=== PATIENT | male | born 1960 | race Caucasian/White ===

== ENCOUNTER 2018-05-02 12:37 | Observation (INO) ==
[2018-05-02 13:43] LABS: Baso # (Auto) 0.1 th/mm3 (0.0-0.2); Baso % (Auto) 0.6 % (0.0-2.0); Eos % (Auto) 0.1 % (0.0-4.0); Hematocrit 39.7 % (39.0-51.0); Hemoglobin 13.8 gm/dL (13.0-17.0); Lymph # (Auto) 1.2 th/mm3 (1.0-4.8); Lymph % (Auto) 13.3 % (9.0-44.0); Mean Corpuscular HGB Conc 34.8 % (32.0-36.0); Mean Corpuscular Volume 88.9 fL (80.0-100.0); Mean Platelet Volume 7.3 fL (7.0-11.0); Mono # (Auto) 0.3 th/mm3 (0.0-0.9); Mono % (Auto) 3.9 % (0.0-8.0); Neut # (Auto) 7.3 th/mm3 (1.8-7.7); Neut % (Auto) 82.1 % (16.0-70.0); Platelet Count 291 th/mm3 (150-450); Red Blood Count 4.47 mil/mm3 (4.50-5.90); Red Cell Distribution Width 13.3 % (11.6-17.2); White Blood Count 8.9 th/mm3 (4.0-11.0)
[2018-05-02] MEDS ORDERED: Sodium Chlor 0.9% Inj 500 ML IV.SIG SCH (14:00)
[2018-05-02 14:02] LABS: Anion Gap 12 meq/L (5-15); Blood Urea Nitrogen 13 mg/dL (7-18); Calcium 8.8 mg/dL (8.5-10.1); Carbon Dioxide 24.1 meq/L (21.0-32.0); Chloride 106 meq/L (98-107); Glomerular Filtration Rate 60 mL/min (>89); Glucose,Random 155 mg/dL (74-106); Potassium 3.6 meq/L (3.5-5.1); Sodium 142 meq/L (136-145)
--- NOTE | 2018-05-02 14:06 | XR ---
EXAM DATE: 05/02/2018 1:55 PM EST AGE/SEX: 57 years / Male INDICATIONS: . Short of breath. CLINICAL DATA: This is the patient's initial encounter. Patient reports that signs and symptoms have been present for 1 day and indicates a pain score of 0/10. MEDICAL/SURGICAL HISTORY: None. None. COMPARISON: No prior exams available for comparison. FINDINGS: PA and lateral views of the chest demonstrate a normal-sized cardiac silhouette. There is no effusion , consolidation, or pneumothorax. The bones and soft tissues demonstrate no acute abnormality. CONCLUSION: No acute cardiopulmonary abnormality is identified. Electronically signed by: Yadiel Ramires MD 05/02/2018 2:05 PM EST
--- NOTE | 2018-05-02 14:06 | ED ---
HPI General Chief Complaint: Syncope Stated Complaint: neuro symptoms Time Seen by Provider: 05/02/18 12:58 Source: patient Mode of arrival: ambulatory Limitations: no limitations History of Present Illness HPI narrative: Patient is a 57-year-old male, past medical history significant for seizures and hyperlipidemia, who presents with complaint of near syncope. He states that over the last 2 days he has had several episodes where he felt like he was going to pass out associated with nausea but no vomiting. He thinks they occur when he gets stressed out but he is not sure. Today prior to arrival he had an episode that was associated with some chest pain and shortness of breath. He does not know if it would occur with exertion or not. No immobilization or leg swelling. No fever, chills. He has had some nasal congestion with a nonproductive cough. complaint: Reports felt faint and almost passed out Onset (ago): hour(s) -: minutes(s) Prodromal symptoms: Reports lightheaded Witnessed: no Context: Reports at rest Injuries sustained associated with event: Reports none Current symptoms: Reports none and back to baseline Treatments prior to arrival: Reports none Related Data Home Medications Medication Instructions Recorded Confirmed levetiracetam [Keppra] 1,500 mg PO BID 05/02/18 05/02/18 Allergies Allergy/AdvReac Type Severity Reaction Status Date / Time carbamazepine [From Tegretol] Allergy Anaphylaxis Verified 05/02/18 12:43 Review of Systems ROS: all other systems reviewed are negative [facility] Medical History Medical History Hyperlipemia (Acute) Seizure (Acute) Social History Social History Substance History: No History of Abuse Second Hand Smoke Exposure: No Smoking Status: Former smoker Tobacco Type: Cigarettes How Often Do You Have a Drink Containing Alcohol: 4 or more times a week Recent Travel in [facility] within the Last 8 Weeks: No Recent Out of Country Travel within the Last 8 Weeks: No Immunization History Tetanus Immunization: Unsure Exam Narrative Exam Narrative: GENERAL: Well-appearing male in no acute distress SKIN: Focused skin assessment warm/dry. No rashes. HEAD: Atraumatic. Normocephalic. EYES: Pupils equal and round. No scleral icterus. No injection or drainage. ENT: No nasal bleeding or discharge. Mucous membranes pink and moist. NECK: Trachea midline. No JVD. CARDIOVASCULAR: Regular rate and rhythm. No murmur appreciated. Intact and equal peripheral pulses. RESPIRATORY: No accessory muscle use. Clear to auscultation. Breath sounds equal bilaterally. GASTROINTESTINAL: Abdomen soft, non-tender, nondistended. Hepatic and splenic margins not palpable. No pulsatile mass. MUSCULOSKELETAL: No obvious deformities. No clubbing. No cyanosis. No edema. NEUROLOGICAL: Awake and alert. No obvious cranial nerve deficits. Motor grossly within normal limits. Normal sensation. Normal speech. PSYCHIATRIC: Appropriate mood and affect; insight and judgment normal. Course Initial Documented Vital Signs Temperature 97.9 F 05/02/18 12:41 Pulse Rate 63 05/02/18 12:41 Respiratory Rate 20 05/02/18 12:41 Blood Pressure 184/95 H 05/02/18 12:41 Pulse Oximetry 99 05/02/18 12:41 Last Documented Vital Signs Temperature 97.9 F 05/02/18 12:41 Pulse Rate 63 05/02/18 12:41 Respiratory Rate 20 05/02/18 12:41 Blood Pressure 184/95 H 05/02/18 12:41 Pulse Oximetry 99 05/02/18 12:41 Medical Decision Making MDM Narrative Medical decision making narrative: Patient is a 57-year-old male who presents with complaint of several episodes of near syncope he thinks is associated with stress. Today he also had associated chest pain with dyspnea. He has been chest pain-free while in the emergency department. EKG does not show any ST or T wave changes. Chest x-ray is unremarkable. Initial troponin is negative. He has been placed in the chest pain center for serial troponins and EKGs. Medical Screen Exam Complete: Yes Emergency Medical Condition: Yes Differential Diagnosis Differential Diagnosis: Differential diagnosis includes but is not limited to dysrhythmia, electrolyte abnormality, anemia, acute coronary syndrome. Medical Records Medical records reviewed: Yes I reviewed the patient's medical records. Lab Data Lab results reviewed: Yes I reviewed the patient's lab results. Result diagrams: 05/02/18 13:23 05/02/18 13:23 Lab Results 05/02/18 05/02/18 Range/Units 13:23 13:23 WBC 8.9 (4.0-11.0) th/mm3 RBC 4.47 L (4.50-5.90) mil/mm3 Hgb 13.8 (13.0-17.0) gm/dL Hct 39.7 (39.0-51.0) % MCV 88.9 (80.0-100.0) fL MCH 31.0 (27.0-34.0) pg MCHC 34.8 (32.0-36.0) % RDW 13.3 (11.6-17.2) % Plt Count 291 (150-450) th/mm3 MPV 7.3 (7.0-11.0) fL Neut % (Auto) 82.1 H (16.0-70.0) % Lymph % (Auto) 13.3 (9.0-44.0) % Runnels % (Auto) 3.9 (0.0-8.0) % Eos % (Auto) 0.1 (0.0-4.0) % Baso % (Auto) 0.6 (0.0-2.0) % Neut # (Auto) 7.3 (1.8-7.7) th/mm3 Lymph # (Auto) 1.2 (1.0-4.8) th/mm3 Runnels # (Auto) 0.3 (0.0-0.9) th/mm3 Eos # (Auto) 0.0 (0.0-0.4) th/mm3 Baso # (Auto) 0.1 (0.0-0.2) th/mm3 WBC Differential . Differential Comment Auto diff final Sodium 142 (136-145) meq/L Potassium 3.6 (3.5-5.1) meq/L Chloride 106 (98-107) meq/L Carbon Dioxide 24.1 (21.0-32.0) meq/L Anion Gap 12 (5-15) meq/L BUN 13 (7-18) mg/dL Creatinine 1.24 (0.60-1.30) mg/dL Estimated GFR 60 L (>89) mL/min Random Glucose 155 H (74-106) mg/dL Calcium 8.8 (8.5-10.1) mg/dL Troponin I Less than 0.02 L (0.02-0.05) ng/mL Imaging Data Attestation: I personally reviewed and interpreted this imaging study as follows : My impression: No acute cardiopulmonary process Radiologist's impression: Chest X-Ray 05/02/18 13:10 CONCLUSION: No acute cardiopulmonary abnormality is identified. ECG Data EKG Prior to Arrival: No Attestation: I personally reviewed and interpreted this ECG as follows: (Sinus rhythm at 60 bpm. There are no ST or T wave changes.) Discharge Plan Discharge Disposition Patient Disposition: ED Admit(ED Internal Use Only) Discharge Condition Condition: Stable Discharge Order Discharge Orders: ED Use Only Admit Order (Routine); Ordered 05/02/18 Ordered By: Ivana Monsivais Discharge Details Diagnosis: Chest pain, rule out acute myocardial infarction Physicians Team ED Provider: Ivana Monsivais Primary Care Provider: [facility],Physician 's Rxs /Orders / Referrals /Forms Prescriptions: No Action levetiracetam [Keppra] 1,000 mg Tablet 1,500 mg PO BID RF: 0 Status ED Status: With Doctor
--- NOTE | 2018-05-02 15:22 | P.HPCA ---
History of Present Illness Primary Care Physician: [facility]ician [place] Chief Complaint: Chest pain History of Present Illness: This is a 57-year-old male with history of seizure disorder and hyperlipidemia presents to ED at the suggestion of the [place] after being evaluated there with the primary complaint of chest discomfort. States persons he noticed one more so being lightheaded and nauseous last evening. Then around 10:00 last evening he began having a left-sided chest discomfort he states is localized. There is moderate. Mildly short of breath. He is Magnus nauseous. That is since resolved. Denies diaphoresis. States symptoms lasted about 2 hours. Found nothing really to worsen or improve the symptoms when they were present. Cannot recall any recent cardiac testing. States his last seizure was a few months ago. States they usually brought on by stress or fatigue. History of seizure disorder and hyperlipidemia. Voices compliance with medications for both. Denies hypertension and known CAD. His mother had a stroke at age 75. Patient quit smoking cigarettes about 30 years ago. - Diagnosis (1) Chest pain (2) Hyperlipidemia (3) History of seizure disorder Review of Systems General: Patient denies fevers, chills, and recent travel. HEENT: Patient denies headache, sore throat, difficulty swallowing. Cardiovascular: Has the chest discomfort as mentioned above. Denies sensation of heart beating rapidly or irregularly. No syncope. Denies diaphoresis. Respiratory: Mildly short of breath. Denies inspirational chest discomfort. Denies coughing wheezing or hemoptysis. GI: He was nauseous last evening. Patient denies vomiting, diarrhea, abdominal pain, bloody stools. Musculoskeletal: Patient denies joint pain or edema. Denies calf pain or edema. Neurovascular: Patient denies numbness, tingling, weakness in extremities. Denies headache. Endocrine: Denies polyuria and polydipsia. Hematologic: Denies easy bruising. Skin: Denies rash or itching. PMFSH - History History Provided By: Patient - Medical History Medical History: Medical History (Last Reviewed 05/02/18 @ 14:05 by Ivana Monsivais MD) Hyperlipemia Seizure - Tobacco History Second Hand Smoke Exposure: No Tobacco Use In Past 30 Days: No Smoking Status: Former smoker Tobacco Type: Cigarettes - Alcohol History How Often Do You Have a Drink Containing Alcohol: 4 or more times a week - Substance Use History Substance History: No History of Abuse - Travel History Recent Travel in the [place] Within the Last 8 Weeks: No Recent Travel Out of the Country Within the Last 8 Weeks: No - Immunization History Tetanus Immunization: Unsure Medications and Allergies Active Medications: Active Medications Sodium Chloride (Ns Flush) 2 ml IV.FLUSH PRN PRN PRN Reason: FLUSH AFTER USING IV ACCESS Allergies Allergy/AdvReac Type Severity Reaction Status Date / Time carbamazepine [From Tegretol] Allergy Anaphylaxis Verified 05/02/18 12:43 Home Medications Medication Instructions Recorded Confirmed Type levetiracetam [Keppra] 1,500 mg PO BID 05/02/18 05/02/18 History Exam Vital signs: Vital Signs 05/02/18 12:41 05/02/18 14:49 Temperature 97.9 F Pulse Rate 63 75 Respiratory Rate 20 18 Blood Pressure 184/95 H 108/70 Pulse Oximetry 99 Intake & Output 05/01/18 05/02/18 05/02/18 18:59 06:59 18:59 Weight 79.379 kg Narrative: GENERAL: This is a well-nourished, well-developed patient, in no apparent distress. Patient speaks in clear complete sentences. Patient is pleasant. HEENT: Head is atraumatic and normocephalic. Neck is supple without lymphadenopathy and trachea is midline. No JVD or carotid bruits. CARDIOVASCULAR: Regular rate and rhythm without murmurs, gallops, or rubs. RESPIRATORY: Clear to auscultation. Breath sounds equal bilaterally. No wheezes , rales, or rhonchi. Chest wall is nontender. No use of accessory muscles. GASTROINTESTINAL: Abdomen is nontender, nondistended. Abdomen soft. No obvious pulsatile mass or bruit. No CVA tenderness. Strong femoral pulses bilaterally. Normal bowel sounds in all quadrants. MUSCULOSKELETAL: Patient is moving upper and lower extremities freely. No calf tenderness or edema, no Homans sign. Strong pulses in upper and lower extremities. NEUROLOGICAL: Patient is alert and oriented. Cranial nerves 2-12 are grossly intact. No focal deficits and speech is clear. SKIN: No rash and turgor is normal. Results 05/02/18 13:23 05/02/18 13:23 Cardiac Enzymes 05/02/18 Range/Units 13:23 Troponin I Less than 0.02 L (0.02-0.05) ng/mL CBC 05/02/18 Range/Units 13:23 WBC 8.9 (4.0-11.0) th/mm3 RBC 4.47 L (4.50-5.90) mil/mm3 Hgb 13.8 (13.0-17.0) gm/dL Hct 39.7 (39.0-51.0) % Plt Count 291 (150-450) th/mm3 Neut # (Auto) 7.3 (1.8-7.7) th/mm3 Lymph # (Auto) 1.2 (1.0-4.8) th/mm3 Alfalfa # (Auto) 0.3 (0.0-0.9) th/mm3 Eos # (Auto) 0.0 (0.0-0.4) th/mm3 Baso # (Auto) 0.1 (0.0-0.2) th/mm3 Comprehensive Metabolic Panel 05/02/18 Range/Units 13:23 Sodium 142 (136-145) meq/L Potassium 3.6 (3.5-5.1) meq/L Chloride 106 (98-107) meq/L Carbon Dioxide 24.1 (21.0-32.0) meq/L BUN 13 (7-18) mg/dL Creatinine 1.24 (0.60-1.30) mg/dL Calcium 8.8 (8.5-10.1) mg/dL Intake and Output 05/02/18 05/02/18 05/02/18 06:59 14:59 22:59 Other: Weight 79.379 kg Patient Weight 05/03/18 06:59 Weight 79.379 kg - Imaging and Cardiology Imaging: Impressions Chest X-Ray 05/02/18 13:10 CONCLUSION: No acute cardiopulmonary abnormality is identified. EKG interpretations - EKG EKG shows: sinus rhythm (Initial EKG is sinus rhythm, incomplete right bundle branch block. No significant ST segment depressions or elevations.) Caprini VTE Risk Assessment Caprini VTE Risk Assessment: No/Low Risk (score <= 1) Caprini Risk Assessment Model: Point Value = 1 Point Value = 2 Point Value = 3 Point Value = 5 Age 41-60 Minor surgery BMI > 25 kg/m2 Swollen legs Varicose veins or History of unexplained or recurrent spontaneous Oral contraceptives or hormone replacement Sepsis (< 1 month) Serious lung disease, including pneumonia (< 1 month) Abnormal pulmonary function Acute myocardial infarction Congestive heart failure (< 1 month) History of inflammatory bowel disease Medical patient at bed rest Age 61-74 Arthroscopic surgery Major open surgery (> 45 min) Laparoscopic surgery (> 45 min) Malignancy Confined to bed (> 72 hours) Immobilizing plaster cast Central venous access Age >= 75 History of VTE Family history of VTE Factor V Leiden Prothrombin [id number] Lupus anticoagulant Anticardiolipin antibodies Elevated serum homocysteine Heparin-induced thrombocytopenia Other congenital or acquired thrombophilia Stroke (< 1 month) Elective arthroplasty Hip, pelvis, or leg fracture Acute spinal cord injury (< 1 month) Prophylaxis Regimen: Total Risk Factor Score Risk Level Prophylaxis Regimen 0-1 Low Early ambulation 2 Moderate Order ONE of the following: *Sequential Compression Device (SCD) *Heparin 5000 units SQ BID 3-4 Higher Order ONE of the following medications: *Heparin 5000 units SQ TID *Enoxaparin/Lovenox 40 mg SQ daily (WT < 150 kg, CrCl > 30 mL/min) *Enoxaparin/Lovenox 30 mg SQ daily (WT < 150 kg, CrCl > 10-29 mL/min) *Enoxaparin/Lovenox 30 mg SQ BID (WT < 150 kg, CrCl > 30 mL/min) AND/OR *Sequential Compression Device (SCD) 5 or more Highest Order ONE of the following medications: *Heparin 5000 units SQ TID (Preferred with Epidurals) *Enoxaparin/Lovenox 40 mg SQ daily (WT < 150 kg, CrCl > 30 mL/min) *Enoxaparin/Lovenox 30 mg SQ daily (WT < 150 kg, CrCl > 10-29 mL/min) *Enoxaparin/Lovenox 30 mg SQ BID (WT < 150 kg, CrCl > 30 mL/min) AND *Sequential Compression Device (SCD) Assessment and Plan - Assessment (1) Chest pain Code(s): R07.9 - Chest pain, unspecified Status: Acute (2) Hyperlipidemia Code(s): E78.5 - Hyperlipidemia, unspecified Status: Acute (3) History of seizure disorder Code(s): Z86.69 - Personal history of other diseases of the nervous system and sense organs Status: Acute - Plan * Chest pain: Patient has been seen by Dr. David Chaves of cardiology and chest pain center. First troponin is normal. Dr. Chaves has requested stress test. He will have a Hansel protocol ETT at this time and would be discharged home if stress test is nonischemic with instructions to follow-up with PCP. Return to ED for interval issues. * Hyperlipidemia: Resume medication. * Seizure disorder: Resume medication. Patient is stable at this time. He is agreeable to this plan.
[2018-05-02] MEDS ORDERED: Acetaminophen 500 MG Tablet PO PRN (16:01)
[2018-05-02] MEDS: levETIRAcetam 250 MG Tablet PO SCH (21:10)
[2018-05-03] MEDS: levETIRAcetam 250 MG Tablet PO SCH (08:35)
[2018-05-03] MEDS ORDERED: Aspirin 325 MG Tablet PO SCH (09:00)
[2018-05-03] MEDS ORDERED: Sertraline 50 MG Tablet PO SCH (09:00)
--- NOTE | 2018-05-03 09:33 | ECG ---
Date Performed: 05/02/2018 Time Performed: 14:09:45 PTAGE: 57 years EKG: Sinus rhythm INCOMPLETE RIGHT BUNDLE BRANCH BLOCK NONSPECIFIC ST & T-WAVE ABNORMALITY BORDERLINE ECG NO PREVIOUS TRACING DOCTOR: Salvador Dumont Interpretating Date/Time 05/03/2018 09:32:17
[2018-05-03] MEDS ORDERED: Regadenoson Inj 0.4 MG/5 ML Syringe IV.PUSH ONE (09:57)
--- NOTE | 2018-05-03 11:05 | TR ---
Date Performed: 05/03/2018 Time Performed: 10:05:26 DOCTOR: Salvador Dumont DRUG LIST: CLINICAL HISTORY: ANGINA REASON FOR TEST: Angina REASON FOR ENDING: OBSERVATION: CONCLUSION: Lexiscan stress test was performed under standard four minute protocol. Radionuclide was injected one minute prior to ending the test. No electrocardiographic abormalities were present diagnostic of ischemia. Nuclear imaging and interpretation are pending. COMMENTS:
--- NOTE | 2018-05-03 11:07 | TR ---
Date Performed: 05/02/2018 Time Performed: 15:22:15 DOCTOR: Salvador Dumont DRUG LIST: CLINICAL HISTORY: CHEST PAIN REASON FOR TEST: REASON FOR ENDING: OBSERVATION: CONCLUSION: SURY PROTOCOL. NO CP. TEST STOPPED AFTER EXCEEDING GOAL HR SECONDARY TO SOB AND LEG FATIGUE.Maximum JZ=974 % Max HR Achieved=93.0% Maximum FG=139/78 Total Exercise Time=9:00 COMMENTS: Inferior lateral flat ST depression suggestive of ischemia. Further evaluation recomm ended.
--- NOTE | 2018-05-03 11:33 | NM ---
EXAM DATE: 05/03/2018 11:24 AM EST AGE/SEX: 57 years / Male INDICATIONS:Angina. . Mid chest pain for one day. CLINICAL DATA: This is the patient's initial encounter. Patient reports that signs and symptoms have been present for 1 day and indicates a pain score of 5/10. MEDICAL/SURGICAL HISTORY: Seizures. None. COMPARISON: No prior exams available for comparison. No external comparison. DOSE: 8.7 mCi Tc 99m Myoview at rest 26.2 mCi [id number] at stress 0.4 mg Lexiscan STRESS SYMPTOMS: Short of breath with chest pressure. EJECTION FRACTION: 52 % TECHNIQUE: The patient underwent pharmacologic stress with infusion of prescribed dose. Continuous ECG tracing was monitored during stress. Gated SPECT imaging was performed after stress and conventi onal SPECT imaging was performed at rest. The examination was performed on a SPECT/CT scanner, both attenuation and non-corrected datasets were reviewed. FINDINGS: Distribution: The maximum perfused segment at stress is in the anterior wall. Perfusion Study: The pattern of perfusion at stress is within normal limits. Gated Study: There are intact wall motion and wall thickening without hypokinetic or dyskinetic segm ents. The ejection fraction is calculated at 52%. RISK CATEGORY: Low (<1% Annual Motality Rate) CONCLUSION: 1. Negative examination. 2. No evidence of fixed or stress-induced reversible perfusion abnormalities. 3. Normal wall motion and ejection fraction. Electronically signed by: Westley Ruiz MD 05/03/2018 11:32 AM EST
== END 2018-05-03 13:42 | disposition home or self-care (01) ==
LOC: NEPD 12:37 → NEDA 12:37 → NEPFCDU 17:12
PROVIDERS: ADMIT Internal Medicine Cardiovascular Disease; ATTEND Internal Medicine Cardiovascular Disease